=== PATIENT | male | born 2000 | race Caucasian/White ===

== ENCOUNTER 2023-05-20 22:27 | Emergency (ER) | payer BC ==
[2023-05-20] MEDS ORDERED: Famotidine 20 MG/2 ML SDV IVPUSH ONE (22:45)
[2023-05-20] MEDS ORDERED: methylPREDNISolone Sodium Succinate 125 MG/2 ML SDV IVPUSH ONE (22:45)
== END 2023-05-21 00:55 | disposition home or self-care (01) ==
LOC: JD.ED 22:27
DX: T78.40XA Allergy, unspecified, initial encounter (principal)
CPT/HCPCS: 96374; 96375; 99283; J2930; J3490; 99284